=== PATIENT | female | born 1970 | race Two or more races ===

== ENCOUNTER 2018-12-14 11:13 | Emergency (ER) | payer MEDICAID, OTHER ==
[~2018-12-14] VITALS: Ht 154.9 cm; Wt 63.5 kg
[2018-12-14 12:09] VITALS: BP 126/44
[2018-12-14] MEDS ORDERED: KETOROLAC TROMETH 60MG/2ML VIAL IM ONE (13:00)
[2018-12-14] MEDS ORDERED: IBUPROFEN 800 MG TAB PO ONE (13:00)
== END 2018-12-14 13:18 | disposition home or self-care (01) ==
LOC: ER 11:13
DX: K04.7 Periapical abscess without sinus (principal); M54.2 Cervicalgia; G89.29 Other chronic pain